=== PATIENT | female | born 1990 | race Caucasian/White ===

== ENCOUNTER 2016-11-23 13:11 | Day surgery (SDC) | payer OTHER ==
[~2016-11-23] VITALS: Ht 170.2 cm; Wt 68.2 kg
[2016-11-23] VITALS (8 sets, daily range): BP systolic 129–147; BP diastolic 66–83; PULSE 76–132; RESP 12–16; O2SAT 97–99
[~2016-11-23 13:11] MED LIST: AMOX-366 PO; DOCU-41 PO; HYDR-4003 PO; NOMED; fentaNYL-PF 50 mCg/mL 2 mL Inj ONE
--- NOTE | 2016-11-23 13:23 | ED.REPORT ---
HPI-General Illness Date of Service Nov 23, 2016 ED Provider: Den Saldaña MD Pt is a 26 y/o female w/ a hx of MRSA infection, masha-rectal abscess, presenting to the ED c/o worsening of masha-rectal abscess since this morning. The patient has had a masha-rectal abscess for 1 year and this morning it developed increased pressure, pain, and drainage. Dr. Ishan Lee is following her case and wants to perform surgical repair but desires a colonoscopy first which is scheduled December 28. He performed a surgical repair 1 year ago. She was here October 17 for similar symptoms and CT was performed which confirmed per-rectal abscess. It has been about 2 weeks since she last took Augmentin. She denies fever, chills, N/V/D, bloody stool, abdominal pain. She has no diagnosed history of Crohn's or IBS. Nursing Notes Stated Complaint: ABSCESS Chief Complaint: General Complaint Nursing Notes Reviewed: Yes Allergies: Coded Allergies: No Known Allergies (Verified Allergy, Unknown, 11/23/16) Scheduled PRN Acetaminophen (Acetaminophen) 325 Mg Tablet 650 MG PO Q4H PRN PRN For Pain Ibuprofen (Ibuprofen) 400 Mg Tablet 400 MG PO QID PRN PRN For Pain General Time Seen by MD: 13:20 Chief Complaint Other (Abscess) Hx Obtained From: Patient Arrived By: Walk-in Sudden in Onset?: No Onset Occurred: 1 week ago Symptom Duration: Since onset Quality: Painful (rectal) Severity: Current: Mild Severity: Maximum: Moderate Recent Healthcare: Previous diagnosis, Prior workup Similar Sx Previous: Yes Past Medical History Past Medical History Axilla MRSA Masha-rectal abscess Past Surgical History Perirectal abscess drainage. Smoking History Current Every Day Smoker, Smoker Current Status UNK Social History Alcohol Use: Denies alcohol use Drug Use: Denies drug use Occupation single, work as a caregiver. Ambulatory Status Independent Review of Systems + rectal pain Full Review of Systems Constitutional: Denies: Chills, Fever Cardiovascular: Denies: Chest pain GI: Denies: Abdominal pain, Bloody/tarry stool, Diarrhea, Nausea, Vomiting Skin: Reports Rash, Reports Swelling Complete sys rev & neg: except as marked. Physical Exam Vital Signs Vital Signs Date Time Temp Pulse Resp B/P Pulse Ox O2 Delivery O2 Flow Rate FiO2 11/23/16 17:02 36.1 76 16 141/68 98 Room Air 2/3/17 13:16 37.2 87 15 129/78 98 Initial VS: Reviewed, Vital signs normal Head / Eyes: Atraumatic, Normocephalic, PERRL ENT: Mucous membranes moist, Conjunctiva normal, No scleral icterus Neck: Supple, Full range of motion Respiratory: Breath sounds normal, Clear to auscultation, No respiratory distress Cardiovascular: Regular rate & rhythm, Heart sounds normal, Intact distal pulses Abdomen / GI: Soft, Non-tender, No guarding, No rebound, No distention Extremities: Vascular intact, Neuro intact, No swelling, No tenderness Skin: Warm, Dry, No cyanosis Neurologic: Alert, Oriented, Nonfocal Psychiatric: Mood/affect normal, Behavior normal, Normal thought content General/Constitutional: Awake, Alert, No acute distress, Cooperative, Not toxic appearing Rectum / Perineum: Atraumatic, No gross blood, No discharge, No fecal impaction , No fissures, No hemorrhoids, No mass Digital limited by patient bearing down and resisting examination Unable to palpate any masses during this limited exam External exam normal Interpretation & Diagnostics Lab Results Interpretation Result Diagram: 11/23/16 1504 11/23/16 1504 Test 11/23/16 15:04 White Blood Count 11.7th/mm3 (3.8-10.1) Red Blood Count 4.55mil/mm3 (3.90-5.20) Hemoglobin 13.3g/dL (12.0-15.6) Hematocrit 40.4% (35.0-46.0) Mean Corpuscular Volume 88.8fL (81-100) Mean Corpuscular Hemoglobin 29.2pg (27.0-35.0) Mean Corpuscular Hemoglobin Concent 32.9% (32.0-37.0) Red Cell Distribution Width 12.4% (12.3-15.4) Platelet Count 366bil/L (150-400) Neutrophils (%) (Auto) 68.5% (40-74) Lymphocytes (%) (Auto) 22.9% (14-46) Monocytes (%) (Auto) 6.8% (4-12) Eosinophils (%) (Auto) 1.3% (0-5) Basophils (%) (Auto) 0.3% (0-3) Sodium Level 139mEq/L (134-144) Potassium Level 4.4mEq/L (3.5-5.2) Chloride Level 102mEq/L (97-108) Carbon Dioxide Level 22mmol/L (18-29) Blood Urea Nitrogen 8mg/dL (6-20) Creatinine 0.61mg/dL (0.57-1.00) Estimat Glomerular Filtration Rate 173mL/min (>59) Glucose Level 92mg/dL (60-99) Calcium Level 10.0mg/dL (8.5-10.1) Total Bilirubin 0.3mg/dL (0.0-1.2) Aspartate Amino Transf (AST/SGOT) 14U/L (0-50) Alanine Aminotransferase (ALT/SGPT) 18U/L (0-32) Alkaline Phosphatase 72U/L (25-150) Total Protein 7.6g/dL (6.4-8.4) Albumin 4.2g/dL (3.4-5.0) Lipase 39U/L (13-60) CT Abd / Pelvis Interpretation IMPRESSION: Perirectal, intra-levator abscess slightly increased in size compared to 10/09/2016. Dictated by: Olivia Melgar MD, PhD on 11/23/2016 at 16:32 Approved by: Olivia Melgar MD, PhD on 11/23/2016 at 16:39 Study type: Abdominal CT IV contrast Interpretation / Wet Read by: Interpret - Radiologist Re-Eval/Medical Decision Med Decision/Clinical Course Pt is a 26 y/o female w/ a hx of masha-rectal abscess, presenting to the ED c/o worsening of rectal pain since this morning. Last CT scan was 10/17/16 (roughly 1 month ago) at which time 2 small infralevator abscesses were identified. Labs notable as below: CBC: Leukocytosis of 11.7 otherwise unremarkable CMP: Unremarkable Urine dip: negative Urine preg: negative Emergency department the patient to IV fluids, Zofran for nausea and hydromorphone for pain. Rectal examination was limited by lack of participation though external rectal area was normal and there is no palpable fluctuant mass on digital rectal examination. Laboratory studies as below were only notable for mild leukocytosis. Patient was discussed with on-call general surgeon Dr. Lafleur who recommended we obtain a CT scan to definitively assess for any progression in size of abscess. CT scan was obtained as above and demonstrated enlarging perirectal and infralevator abscesses. Dr. Lafleur evaluated the patient at the bedside and opted to admit the patient directly to the operating room for further management. The patient was transferred in stable condition. Patient's pain was well managed and she was placed on maintenance fluids and remained NPO. Time of Eval: 17:36 Patient Status: Pain improved Re-Evaluation/Progress Note: Pt rechecked. Informed pt of need for admission for surgical intervention. Pt understands and agrees with plan for admission. All questions addressed. Consultation : Referral / Consult Name: Willy Lafleur MD Consulted With: Surgeon Call Returned at: 14:59 Ichthyologist: Will see patient, Agrees with eval, Agrees with plan, Accepts admit Note: Recommends CT scan. After discussion of CT scan, he will come see the patient. After examining the patient at bedside, he accepts admit for surgical intervention. Counseled Regarding: Diagnosis, Lab results, Need for admission Discharge & Departure Primary Impression: Perirectal abscess Additional Impressions: Leukocytosis Leukocytosis type: unspecified Qualified Code: D72.829 - Elevated white blood cell count, unspecified Rectal pain Rectal discharge Disposition: ADMITTED TO HOSPITAL Discharge Condition All VS Reviewed: Yes Condition: Stable Referrals: Ishan Lee MD Attestation Portions of this note were transcribed by Marcial Norris. I, Dr. Saldaña personally performed the history, physical exam and medical decision-making; I reviewed and confirmed the accuracy of the information in the transcribed note. Signed by Christiano Arguelles, 11/23/161429 copies to: Ishan Lee MD, Beck O MD Nov 23, 2016 13:23 MARCIAL NORRIS Nov 23, 2016 13:59 reviewed and confirmed the accuracy of the information in the transcribed note. Signed by Christiano Arguelles, 11/23/16 143 copies to: Ishan Lee MD, Beck O MD Nov 23, 2016 13:23 MARCIAL NORRIS Nov 23, 2016 13:59
[2016-11-23] MEDS ORDERED: 0.9% Sodium Chloride 1,000 ML IV ONE (14:18)
[2016-11-23] MEDS ORDERED: Ondansetron 2 mg/mL 2 mL Inj IVPUSH ONE (14:20)
[2016-11-23] MEDS: HYDROmorphone 0.5 mg/0.5 mL iSecure Syringe IVPUSH PRN ×4 (14:48→19:10)
[2016-11-23 15:09] LABS: BASOPHILS % (AUTO) 0.3 % (0-3); EOSINOPHILS % (AUTO) 1.3 % (0-5); MONOCYTES % (AUTO) 6.8 % (4-12); Mean Corpuscular Hemoglobin 29.2 pg (27.0-35.0); Mean Corpuscular Volume 88.8 fL (81-100); NEUTROPHILS % (AUTO) 68.5 % (40-74); Platelet Count 366 bil/L (150-400)
--- NOTE | 2016-11-23 16:41 | DRSVH ---
PROCEDURE: CT ABDOMEN AND PELVIS WITH CONTRAST ([id number]) INDICATIONS: assess infralevator abscess TECHNIQUE: After the administration of intravenous contrast, 5 mm thick sections acquired from the diaphragm to the symphysis. 5 mm coronal and sagittal reformats were acquired. For radiation dose reduction, the following was used: automated exposure control, adjustment of mA and/or kV according to patient siz e. COMPARISON: [facility], CT, CT PELVIS W CON, 12/14/2015, 22:38. [facility], CT, CT PELVIS W CON, 10/17/2016, 22:31. FINDINGS: Image quality: Excellent. ABDOMEN: Lung bases: Lung bases are clear. Heart size is normal. Solid organs: Liver and spleen are normal in size and enhancement. Gallbladder is within normal otero its. Biliary system is non dilated. Pancreas enhances normally. No adrenal nodules. Kidneys demon strate normal size and enhancement, without hydronephrosis. Peritoneum and bowel: Bowel loops demonstrate normal wall thickness and caliber. No free fluid or a ir. Walled off fluid collection at the anorectal junction inferior to the levator ani musculature is redemonstrated. Fluid collection is increased in size interval since prior CT scan obtained 09/22/2016 measuring 1.9 x 2.3 x 2.1 cm in the current study. The appendix is normal. Nodes and vessels: No retroperitoneal or mesenteric adenopathy by size criteria. Aorta and inferior vena cava are normal in size. Miscellaneous: No ventral hernias. PELVIS: Genitourinary: Bladder wall thickness is normal. Bilateral adnexal follicles are noted. Miscellaneous: No inguinal hernias or adenopathy. Bones: No suspicious bony lesions. No vertebral body compression fractures. IMPRESSION: Perirectal, intra-levator abscess slightly increased in size compared to 10/09/2016. Dictated by: Olivia Melgar MD, PhD on 11/23/2016 at 16:32 Approved by: Olivia Melgar MD, PhD on 11/23/2016 at 16:39
[2016-11-23] MEDS ORDERED: ACET325T51 PO (17:41)
[2016-11-23] MEDS ORDERED: IBUP400T22 PO (17:41)
[2016-11-23] MEDS ORDERED: Propofol 10,000 mCg/mL 20 mL Inj ONE (17:44)
[2016-11-23] MEDS ORDERED: Ondansetron 2 mg/mL 2 mL Inj ONE (17:44)
--- NOTE | 2016-11-23 18:12 | HP ---
[address] [address] HISTORY AND PHYSICAL PATIENT: CUAUHTEMOC PICKARD : 1990 MR#: [id number] ADMIT: 11/23/2016 JOB ID: [id number] CHIEF COMPLAINT: A 26-year-old lady with recurrent perirectal abscess. Seen in consultation at the request of Den Saldaña MD. HISTORY OF PRESENT ILLNESS: The patient is a 26-year-old lady who had a right anterolateral perirectal abscess drained by Dr. Ishan Lee in November 2015. He saw no internal opening at that time on anoscopy and the packing was removed the next day. Over the last year she has had over 15 episodes of pain followed by drainage. She even presented to the emergency department in September at which time they did see some collections suggestive of recurrent abscesses posteriorly. She was seen by Dr. Lee, who planned to perform a colonoscopy, but over the last few days she had worsening pain. It has been close to two weeks since she last took her Augmentin which was given her for her abscess seen in the emergency department. She has had no fevers or chills or other abdominal complaints. She presented to the emergency department today. She has not had any drainage today compared to what she has had on and off on a daily basis before this. OTHER MEDICAL PROBLEMS: None. PRIOR OPERATIONS: Incision and drainage of a perirectal abscess in November 2015. REVIEW OF SYSTEMS: Twelve point review of systems negative other than the pertinent positives noted in the history of present illness and other medical problems. MEDICATIONS: Ibuprofen. ALLERGIES: No known medication allergies. FAMILY HISTORY: No family history of inflammatory bowel disease. SOCIAL HISTORY: She used to smoke cigarettes but has quit two or three months ago. She works as a caregiver. INVESTIGATIONS: Labs from November 23, 2016: WBC 11.7, platelet count 366, creatinine 0.6. Normal liver function studies. Albumin 4.2. CT abdomen and pelvis November 23, 2016: Walled-off fluid collection at the anorectal junction posteriorly near the levators measuring 1.9 x 2.3 x 2.0 cm. PHYSICAL EXAMINATION: A 26-year-old lady in no acute distress. Temperature 36.1, pulse 76, blood pressure 141/68, 98% on room air. Eyes: Normal pupils, conjunctivae. Ears, nose, and throat: Normal external appearance. Neck: No adenopathy or jugular venous distention. Respiratory: Normal effort, clear to auscultation. Cardiovascular: Regular rate and rhythm. Gastrointestinal: Abdomen soft. Examination of the perineum revealed possible old drainage site on the right, anterior to the anus. Some redness and tenderness immediately posterior to the anal verge. Rectal exam was deferred due to pain right now. Neurologic: No gross deficits. Psych: Alert, appropriate. Skin: Otherwise normal. ASSESSMENT AND PLAN: A 26-year-old lady with recurrent perirectal abscess. Discussed the pathophysiology and treatment rationale and discussed the importance of sticking to the plan to get a colonoscopy with Dr. Lee, but for now recommended rectal examination under anesthesia with drainage of the abscess and possible seton placement to facilitate symptom management and possible eventual cure of the fistula. After discussing the risks, benefits, and alternatives, she and her mom wished to proceed and we will go ahead at the earliest opportunity.
[2016-11-23] MEDS: metroNIDAZOLE Inj 500 MG in IV Premix 1 EACH IV ONE ×2 (18:14→18:21)
[2016-11-23] MEDS: levoFLOXacin Inj 500 MG in IV Premix 1 EACH IV ONE ×2 (18:21→18:24)
[2016-11-23] MEDS ORDERED: Bupivacaine-MPF 0.5% 30 mL Inj INFILTRATE ONE (18:45)
[2016-11-23] MEDS ORDERED: HYDROmorphone 1 mg/mL Inj ONE (18:52)
[2016-11-23] MEDS ORDERED: Lactated Ringer's 1,000 ML IV SCH (18:53)
[2016-11-23] MEDS ORDERED: Lactated Ringer's 500 ML IV PRN (18:53)
[2016-11-23] MEDS ORDERED: OXYC5TAB72 PO (18:54)
[2016-11-23] MEDS ORDERED: LEVO500T16 PO (18:54)
[2016-11-23] MEDS ORDERED: METR500T PO (18:54)
[2016-11-23] MEDS ORDERED: POLY17PO6 PO (18:54)
[2016-11-23] MEDS ORDERED: MetoCLOpramide 5 mg/mL 2 mL Inj IVPUSH PRN (18:55)
[2016-11-23] MEDS ORDERED: Phenylephrine 10,000 mCg/mL Inj IVPUSH PRN (18:55)
[2016-11-23] MEDS ORDERED: EPHEDrine Sulfate 50 mg/mL Inj IVPUSH PRN (18:55)
[2016-11-23] MEDS ORDERED: Ondansetron 2 mg/mL 2 mL Inj IVPUSH PRN (18:55)
[2016-11-23] MEDS: fentaNYL-PF 50 mCg/mL 2 mL Inj ONE ×2 (18:57→19:05)
--- NOTE | 2016-11-23 19:00 | PCM.ANEP1 ---
Post Anesthesia Phase 1 PACU Phase 1 Assessment Vital Signs Vital Signs Date Time Temp Pulse Resp B/P Pulse Ox O2 Delivery O2 Flow Rate FiO2 11/23/16 18:52 36.9 132 16 147/83 97 Room Air 11/23/16 18:07 36.1 76 16 141/68 98 Room Air 11/23/16 17:02 36.1 76 16 141/68 98 Room Air 11/23/16 13:16 37.2 87 15 129/78 98 Anesthetic Administered: GA Level of Alertness: Awake, talking STEWART's with Equal Strength: Yes Pain: Yes Pain Scale Score: 4 Nausea or Vomiting: No Oxygen Delivery: Room Air Lungs: Clear to Auscultation Dermatome Level: Full Sensation Samir Waer MD Nov 23, 2016 19:00
--- NOTE | 2016-11-23 19:01 | PCM.ANEP2 ---
Post Anesthesia Evaluation ASA/CMS Post Anesthesia VS in Patient's Normal Range?: Yes Resp Stable; Airway Patent?: Yes CV Function & Hydration Stable: Yes Mental Status Recovered?: Yes Pain control Satisfactory?: Yes N/V Control Satisfactory?: Yes Samir Ware MD Nov 23, 2016 19:01
--- NOTE | 2016-11-23 19:26 | OP ---
[address] [address] OPERATIVE REPORT PATIENT: CUAUHTEMOC PICKARD : 1990 MR#: [id number] ADMIT: 11/23/2016 JOB ID: [id number] DATE OF SURGERY: 11/23/2016 PREOPERATIVE DIAGNOSIS(ES): Recurrent perirectal abscess. POSTOPERATIVE DIAGNOSIS(ES): Recurrent perirectal abscess. PROCEDURE PERFORMED: Rectal examination under anesthesia and drainage of perirectal abscess with seton placement. SURGEON: Willy Lafleur MD ENGRAVING PRESS OPERATOR: None. INDICATIONS: A 26-year-old lady who has had a right anterolateral perirectal abscess drained by Dr. Ishan Lee in November 2015. He saw no internal opening at the time of the anoscopy and the packing in place was removed the next day. Over the last year she has had multiple episodes of recurrent pain and drainage and she was seen in the emergency department in September at which time they saw some collections posteriorly suggestive of recurrent abscesses. Dr. Lee saw her in clinic and was planning to perform a colonoscopy but she presented to the emergency department with worsening pain after her antibiotics finished. A CT performed in the ED showed a 2 cm collection posteriorly and after discussing the risks, benefits, and alternatives, she was brought to the operating room for exam under anesthesia, incision and drainage, and possible seton placement. PROCEDURE DETAILS: She was placed in the supine position and underwent smooth induction of general anesthesia. She was then placed in a lithotomy position and perineum was prepped and draped in the usual sterile fashion. Surgical time-out was undertaken using safety checklist and all were in agreement. Examination of the perineum revealed the old incision site in the right anterolateral location but no obvious communication was seen from that to the rectum. I did see purulent drainage coming from within the anal canal posteriorly and was able to find an internal opening close to the dentate line posteriorly, so I entered the abscess cavity through this space and actually made a new external opening posterolaterally and on the right side, and advanced a vessel loop through as a seton. I made sure all the pus was drained by manual compression and irrigating the cavity with saline and hydrogen peroxide. I infiltrated the surgical site with 0.5% bupivacaine and then secured the seton (the vessel loop) to itself and we terminated the procedure. She tolerated the procedure well and was taken to the recovery room in stable condition.
[2016-11-24] MEDS ORDERED: levoFLOXacin 500 mg Tablet PO SCH (07:30)
[2016-11-24] MEDS ORDERED: Polyethylene Glycol (PEG) 17 Gm Powder PO SCH (08:30)
== END 2016-11-23 23:59 | disposition home or self-care (01) ==
LOC: SED 13:11 → SAS 17:43
PROVIDERS: ATTEND Student in an Organized Health Care Education/Training Program
DX: K61.1 Rectal abscess (principal); D72.829 Elevated white blood cell count, unspecified; F17.210 Nicotine dependence, cigarettes, uncomplicated; Z86.14 Personal history of Methicillin resistant Staphylococcus aureus infection
CPT/HCPCS: 36415; 46040; 74177; 80053; 81025; 83690; 85025; 96361; 96374; 96375; 96376; 99285; J1170; J2250; J2405; J3010; J3490; J7030; Q9967

== ENCOUNTER 2017-02-01 17:19 | Emergency (ER) | payer OTHER ==
[~2017-02-01] VITALS: Ht 170.2 cm; Wt 68.2 kg
[~2017-02-01 17:19] MED LIST changes: +ACET325T51 PO; -AMOX-366 PO; -DOCU-41 PO; -HYDR-4003 PO; +IBUP400T22 PO; +LEVO500T16 PO; +METR500T PO; -NOMED; +OXYC5TAB72 PO; +POLY17PO6 PO; -fentaNYL-PF 50 mCg/mL 2 mL Inj ONE
[2017-02-01 17:29] VITALS: BP 128/71; PULSE 99; RESP 15; O2SAT 99
--- NOTE | 2017-02-01 19:25 | ED.REPORT ---
HPI-General Illness Date of Service Feb 01, 2017 ED Provider: Sai Coronel PA-C Davon is a 26-year-old female who presents to the emergency department with a chief complaint of perirectal fistula pain. 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 She had surgery approximately one year ago and again approximately 2 months ago. The plan at this point is to let the fistula heal on its own. She presents to the emergency department because of increasing pain over the last 2 days. Pain is aggravated by moving and walking. It is ameliorated by lying still. She admits green discharge and been relatively constant since her last surgery. Admits nausea and loose stools. Denies fever, chills, malaise, vomiting, abdominal pain, urinary symptoms. Nursing Notes Stated Complaint: FISTULA, GENERAL PAIN Chief Complaint: Female Abdominal Pain Nursing Notes Reviewed: Yes Allergies: Coded Allergies: No Known Allergies (Verified Allergy, Unknown, 02/01/17) Scheduled Hydrocodone-Acetaminophen 5-325 mg (Hydrocodone-Acetaminophen 5-325 mg) 1 Each Tablet 1-2 TABLET PO QID Levofloxacin (Levaquin) 500 Mg Tablet 500 MG PO DAILYAC Levofloxacin (Levofloxacin) 500 Mg Tablet 500 MG PO DAILY Metronidazole (Flagyl) 500 Mg Tablet 500 MG PO Q8 Polyethylene Glycol 3350 (Miralax) 17 Gm Powd.pack 17 GM PO DAILY Scheduled PRN Acetaminophen (Acetaminophen) 325 Mg Tablet 650 MG PO Q4H PRN PRN For Pain Ibuprofen (Ibuprofen) 400 Mg Tablet 400 MG PO QID PRN PRN For Pain oxyCODONE (oxyCODONE) 5 Mg Tablet 5 MG PO Q4H PRN PRN For Moderate Pain General Time Seen by MD: 19:01 Chief Complaint Other (anal fistula pain) Past Medical History Past Medical History Axilla MRSA Masha-rectal abscess Past Surgical History Perirectal abscess drainage. Smoking History Current Every Day Smoker, Smoker Current Status UNK Social History Alcohol Use: Denies alcohol use Drug Use: Denies drug use Occupation single, work as a caregiver. Ambulatory Status Independent Review of Systems Negative unless stated otherwise in history of present illness Physical Exam General: Well appearing, well developed, well nourished, no acute distress. Perineum: Small pore noted in the right lateral anus with a small amount of green/yellow discharge. 2 smaller pores are noted at the posterior border of the head was Head: Atraumatic, normocephalic. Eyes: No scleral icterus or injection. No discharge. Vision grossly intact. ENT: Voice clear, hearing grossly intact. Respiratory: Regular rate and rhythm. Breath sounds present, clear to auscultation and equal bilaterally. No respiratory distress. No increased work of breathing, speaks in complete sentences. Cardiovascular: Regular rate and rhythm, without murmur, gallop or rub. No pedal edema. Gastrointestinal: Abdomen flat and non-tender without guarding or rebound. Bowel sounds normoactive. Skin: Warm and dry. Neurological: Grossly nonfocal. Psychological: Alert and oriented. Speech appropriate, linear and logical. Behavior appropriate. Vital Signs Vital Signs Date Time Temp Pulse Resp B/P Pulse Ox O2 Delivery O2 Flow Rate FiO2 02/01/17 21:24 36.8 77 16 127/67 97 02/01/17 17:29 37.1 99 15 128/71 99 Room Air Initial VS: Vital signs normal Re-Eval/Medical Decision Med Decision/Clinical Course 26-year-old female presents with chief complaint of increasing pain from her perirectal fistula which is being treated by [facility] general surgery. No clinical indication of systemic infection, abscess or cellulitis. Small amount of purulent discharge from fistula. Discussed the case with Dr. Masters and treated according to her recommendations on levofloxacin, metronidazole and pain medication. She asks the patient contact the clinic first thing Saturday morning to be seen on Saturday. Patient and her mother express understanding of and agreement to the plan. Consultation : Referral / Consult Name: Sophie Masters MD Requested Call at: 20:02 Call Returned at: 20:04 Note: Dr. Masters asked to place the patient on levofloxacin and Flagyl and provide her with pain medication. Request that the patient call the clinic first thing in the morning on Saturday to be seen on Saturday. Discharge & Departure Primary Impression: Rectal pain Disposition: Home Discharge Condition All VS Reviewed: Yes Condition: Stable Additional Instructions: Evaluation for rectal fistula pain in the emergency department. History, physical are reassuring is unlikely to be a systemic infection. I do not see an obvious abscess or cellulitis. However there is a possibility that there is an infection in your fistula. I consulted with Dr. Masters at [facility]. She recommends starting levofloxacin and Flagyl. I will write prescriptions for these. Pain is best managed with 600 mg of ibuprofen taken every 6 hours. A prescription for a small amount of hydrocodone/acetaminophen. You can take 1-2 of these every 6 hours for pain not controlled by ibuprofen. Do not drive or drink alcohol within 4 hours of taking this medication. Contact Dr. Masters's office first thing on Saturday morning to arrange follow-up. Return to emergency department for new or worsening symptoms including increasing pain, fever, racing heart, sweating, feeling ill. Referrals: Sophie Masters MD EDSupervising Provider for APC: Brady Negrete MD copies to: Sophie Masters MD, Seth PA-C Feb 01, 2017 19:25
[2017-02-01] MEDS ORDERED: HYDROcodone-APAP 5-325 mg Tablet PO ONE (19:30)
[2017-02-01] MEDS ORDERED: METR500T PO (20:20)
[2017-02-01] MEDS ORDERED: LEVO500T79 PO (20:20)
[2017-02-01] MEDS ORDERED: HYDR-4003 PO (20:21)
[2017-02-01 21:24] VITALS: BP 127/67; PULSE 77; RESP 16; O2SAT 97
== END 2017-02-01 20:43 | disposition home or self-care (01) ==
LOC: SED 17:19
DX: K62.89 Other specified diseases of anus and rectum (principal); F17.200 Nicotine dependence, unspecified, uncomplicated

== ENCOUNTER 2017-05-27 22:30 | Emergency (ER) | payer OTHER ==
[~2017-05-27] VITALS: Ht 170.2 cm; Wt 65.9 kg
[~2017-05-27 22:30] MED LIST changes: +HYDR-4003 PO; +LEVO500T79 PO
[2017-05-27 22:52] VITALS: BP 124/82; PULSE 85; RESP 16; O2SAT 99
--- NOTE | 2017-05-28 01:02 | ED.REPORT ---
HPI-General Illness Date of Service May 28, 2017 ED Provider: Amos Hilliard DO Pt is a 26 year old female with a history of perirectal abscess, perirectal abscess drainage, and axilla MRSA who presents to the ED complaining of rectal pain. She denies any other symptoms. Pt reports that that she has a draining fistula and she noticed that there are now "what looks like holes" present. Nursing Notes Stated Complaint: PERIRECTAL ABSCESS. FISTULA Chief Complaint: General Complaint Nursing Notes Reviewed: Yes Allergies: Coded Allergies: No Known Allergies (Verified Allergy, Unknown, 02/01/17) Scheduled Hydrocodone-Acetaminophen 5-325 mg (Hydrocodone-Acetaminophen 5-325 mg) 1 Each Tablet 1-2 TABLET PO QID Levofloxacin (Levaquin) 500 Mg Tablet 500 MG PO DAILYAC Levofloxacin (Levofloxacin) 500 Mg Tablet 500 MG PO DAILY Metronidazole (Flagyl) 500 Mg Tablet 500 MG PO Q8 Polyethylene Glycol 3350 (Miralax) 17 Gm Powd.pack 17 GM PO DAILY Scheduled PRN Acetaminophen (Acetaminophen) 325 Mg Tablet 650 MG PO Q4H PRN PRN For Pain Ibuprofen (Ibuprofen) 400 Mg Tablet 400 MG PO QID PRN PRN For Pain oxyCODONE (oxyCODONE) 5 Mg Tablet 5 MG PO Q4H PRN PRN For Moderate Pain General Time Seen by MD: 01:02 Chief Complaint Other (Rectal pain) Hx Obtained From: Patient Arrived By: Walk-in Onset Occurred: Onset unknown Symptom Duration: Since onset Quality: Painful Radiation: : Does not radiate Severity: Current: Moderate Severity: Maximum: Moderate Recent Healthcare: No recent doctor visit, No recent hospitalization Similar Sx Previous: Yes Past Medical History Past Medical History Axilla MRSA Masha-rectal abscess Past Surgical History Perirectal abscess drainage. Smoking History Current Every Day Smoker Social History Alcohol Use: Denies alcohol use Drug Use: Denies drug use Other Social History: Good social support Occupation single, work as a caregiver. Ambulatory Status Independent Review of Systems + rectal pain Full Review of Systems Constitutional: Denies: Fever Respiratory: Denies: Non-productive cough, Shortness of breath Complete sys rev & neg: except as marked. Physical Exam Vital Signs Vital Signs Date Time Temp Pulse Resp B/P Pulse Ox O2 Delivery O2 Flow Rate FiO2 05/28/17 01:41 37.4 85 16 124/82 99 05/27/17 22:52 37.4 85 16 124/82 99 Initial VS: Reviewed Head / Eyes: Atraumatic, Normocephalic Neck: Supple, Full range of motion Respiratory: Breath sounds normal, Clear to auscultation, No respiratory distress Cardiovascular: Regular rate & rhythm, Heart sounds normal, Intact distal pulses Abdomen / GI: Soft, Non-tender Extremities: Vascular intact, Neuro intact Skin: Warm, Dry, No cyanosis Neurologic: Alert, Oriented, Nonfocal Psychiatric: Mood/affect normal, Behavior normal General/Constitutional: Awake, Alert FEMALE : Indurated and erythematous around perianal area that appears to be a developing perianal abscess Re-Eval/Medical Decision Med Decision/Clinical Course No discrete abscess is palpable. No draining fistulous track either. There does appear to be erythema and skin induration consistent with cellulitis. I will place her on Flagyl and Bactrim to cover anaerobes and skin gerry. Short course of opiates for pain but I do recommend that she is seen closely in the surgical clinic for follow-up. Routine opiate warnings given Source of Hx: Old records Time of Eval: 01:35 Re-Evaluation/Progress Note: Pt rechecked. Informed pt of plan for discharge. Pt understands and agrees with plan for discharge. F/U instructions and RTER warnings given. All questions addressed. Counseled Regarding: Diagnosis, Need for follow-up, When/why to return to ED Discharge & Departure Primary Impression: Perirectal cellulitis Disposition: Home Discharge Condition All VS Reviewed: Yes Condition: Stable Patient Instructions: Cellulitis (ED) Additional Instructions: Take Flagyl 3x daily for 7 days. Do not consume alcohol while taking the Flagyl. Take Bactrim 2x daily for 7 days. Take [place] 1-2 every 6 hours as needed. Do not drive or drink alcohol or consume acetaminophen while taking [place]. This is an opiate and can be habit forming; use it sparingly. Take Motrin every 6 hours as needed for moderate pain. Call the referral surgeon tomorrow for a follow up appointment this week as this may be a developing abscess. Return to the Emergency Department for any new or worsening symptoms. Referrals: Kalyn Soni (PCP) Ishan Lee MD Scribe Attestation Portions of this note were transcribed by Martina Waters. IDr. Hilliard personally performed the history, physical exam and medical decision-making; I reviewed and confirmed the accuracy of the information in the transcribed note. Signed by : Christiano Greene, 05/28/17. copies to: Ishan Lee MD; Kalyn Soni Todd P DO May 28, 2017 01:02 Martina Glynn May 28, 2017 01:18
[2017-05-28] MEDS ORDERED: HYDROcodone-APAP 5-325 mg Tablet PO ONE (01:30)
[2017-05-28] MEDS ORDERED: Trimethoprim-Sulfa 160 mg-800 mg Tablet PO ONE (01:30)
[2017-05-28 01:41] VITALS: BP 124/82; PULSE 85; RESP 16; O2SAT 99
== END 2017-05-28 01:36 | disposition home or self-care (01) ==
LOC: SED 22:30
DX: K61.1 Rectal abscess (principal); F17.200 Nicotine dependence, unspecified, uncomplicated